=== PATIENT | female | born 1965 | race Caucasian/White ===

== ENCOUNTER 2017-07-20 05:08 | Emergency (ER) | payer SELFPAY ==
[~2017-07-20] VITALS: Ht 165.1 cm; Wt 72.7 kg
[~2017-07-20 05:08] MED LIST: CARAFATE100 MG/ML PO; FISH OIL 1,0001 EAC7 PO; MULTI-DAY VITA1 EACH PO; PEPCID40 MG PO; ULTRAM50 MG PO; VITAMIN D31000 UNIT PO
[2017-07-20 05:38] LABS: HEMATOCRIT 38.2 % (36.0-46.0); HEMOGLOBIN 12.8 G/DL (11.9-15.5); MCH 30.5 PG (29.0-34.0); MCHC 33.5 G/DL (30.0-36.0); PLATELET COUNT 274 K/uL (156-360); WHITE BLOOD COUNT 7.9 K/uL (4.1-10.2)
[2017-07-20 05:52] LABS: CHLORIDE 104 mEq/L (99-109); POTASSIUM 3.9 mEq/L (3.7-5.4)
[2017-07-20 05:53] LABS: SODIUM 142 mEq/L (136-147)
[2017-07-20 05:54] LABS: GLUCOSE 97 mg/dL (70-99)
[2017-07-20 05:58] LABS: CREATININE 0.9 mg/dL (0.6-1.3); GFR ESTIMATE (CALCULATED) > 59 mL/min/
[2017-07-20 05:59] LABS: TROP-I INTERPRETATION NEGATIVE; TROPONIN-I < 0.01 ng/mL (0.0-0.30); UREA NITROGEN (BUN) 16 mg/dL (9-23)
[2017-07-20 06:16] LABS: ALBUMIN 4.4 g/dL (3.2-4.8)
[2017-07-20 06:20] LABS: TOTAL BILIRUBIN 0.5 mg/dL (0.0-1.0)
[2017-07-20 06:21] LABS: ALKALINE PHOSPHATASE 61 IU/L (3-129)
[2017-07-20 06:24] LABS: ALT (GPT) 19 IU/L (3-49); AST (GOT) 25 IU/L (2-34); DIRECT BILIRUBIN 0.2 mg/dL (0.0-0.3)
[2017-07-20 06:25] LABS: LIPASE 35 U/L (1.0-51.0)
[2017-07-20 08:55] LABS: TROP-I INTERPRETATION NEGATIVE; TROPONIN-I < 0.01 ng/mL (0.0-0.30)
[2017-07-20] MEDS ORDERED: ZANTAC150 MG PO (09:04)
[2017-07-20 09:32] VITALS: BP 119/71
== END 2017-07-20 09:34 | disposition home or self-care (01) ==
LOC: EME 05:08
PROVIDERS: Physician Assistant
DX: K21.9 Gastro-esophageal reflux disease without esophagitis (principal); F32.9 Major depressive disorder, single episode, unspecified
CPT/HCPCS: 71046; 76705; 80048; 80076; 83690; 84484; 85027; 93005; 99281; 99285